=== PATIENT | male | born 1970 | race Caucasian/White ===

== ENCOUNTER 2021-11-08 15:40 | Emergency (ER) | payer OTHER ==
[~2021-11-08] VITALS: Ht 193 cm; Wt 103.9 kg
== END 2021-11-08 19:06 | disposition home or self-care (01) ==
LOC: ED 15:40
DX: H11.32 Conjunctival hemorrhage, left eye (principal)
CPT/HCPCS: 99283

== ENCOUNTER 2022-03-05 09:43 | Emergency (ER) | payer OTHER ==
[~2022-03-05] VITALS: Ht 193 cm; Wt 103.9 kg
[2022-03-05] MEDS ORDERED: BACITRACIN28.4 GM TOP (12:42)
== END 2022-03-05 12:52 | disposition home or self-care (01) ==
LOC: ED 09:43
DX: T20.50XA Corrosion of first degree of head, face, and neck, unspecified site, initial encounter (principal); T65.891A Toxic effect of other specified substances, accidental (unintentional), initial encounter; T32.0 Corrosions involving less than 10% of body surface; H11.422 Conjunctival edema, left eye
CPT/HCPCS: 16000; 99283-25